=== PATIENT | male | born 2000 | race Caucasian/White ===

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

== ENCOUNTER 2019-09-11 08:45 | Emergency (ER) | payer MEDICAID ==
[2019-09-11] MEDS ORDERED: IPRATROPIUM/ALBUTEROL 3 ML NEB INH STA (09:39)
[2019-09-11] MEDS ORDERED: CHERRY SYRUP 10 ML UDC PO ONE (09:39)
[2019-09-11] MEDS ORDERED: DEXAMETHASONE 10 MG/ML VIAL PO STA (09:39)
--- NOTE | 2019-09-11 09:46 | ED Physician Documentation ---
PD HPI URI - Stated complaint Stated Complaint: SOA/DIZZINESS - Chief complaint Chief Complaint: Resp - History obtained from History obtained from: Patient - History of Present Illness Timing - onset: How many months ago (1) Timing duration: Months (1) Timing details: Gradual onset, Still present Associated symptoms: Fever, Chills, Sweats, Ear pain, Nasal congestion, Rhinorrhea, Sinus pain, Sore throat, Productive cough Improves by: Rest, Medication Worsened by: Activity Similar symptoms before: Diagnosis (asthma) Recently seen: Not recently seen - Additional information Additional information: 18-year-old male with a history of mild intermittent asthma has developed a cough and congestion over the past month. He had some ear pain that started in the right side about 1 month ago. He has had cough and congestion started about a week after that and over the past 3 weeks has had increasing shortness of breath. He does not have a rescue inhaler right now and he is decided to come to the emergency department when he is having a difficult time breathing. Review of Systems Constitutional: reports: Fever, Chills, Myalgias, Fatigue, Sweats Eyes: denies: Decreased vision Ears: reports: Ear pain Nose: reports: Rhinorrhea / runny nose, Congestion Cardiac: reports: Chest pain / pressure. denies: Palpitations, Pedal edema, Calf pain Respiratory: reports: Dyspnea, Cough, Wheezing GI: denies: Abdominal Pain, Nausea, Vomiting : denies: Dysuria PD PAST MEDICAL HISTORY - Past Medical History Cardiovascular: None Respiratory: None, Asthma Neuro: None Endocrine/Autoimmune: None GI: None : None HEENT: None Psych: None Musculoskeletal: None Derm: None - Past Surgical History Past Surgical History: Yes HEENT: Tonsil/Adenoidectomy - Present Medications Home Medications: Ambulatory Orders Medication Instructions Recorded Confirmed Albuterol Sulf [Ventolin Hfa 1 - 2 puffs INH Q4HR PRN #1 inhaler 09/11/19 Inhaler] Azithromycin [Zithromax] 250 mg PO DAILY #6 tablet 09/11/19 Benzonatate [Tessalon Perle] 100 - 200 mg PO TID PRN #30 capsule 09/11/19 - Allergies Allergies/Adverse Reactions: Allergies Allergy/AdvReac Type Severity Reaction Status Date / Time morphine Allergy dyspnea Verified 09/11/19 08:57 - Social History Does the pt smoke?: No Smoking Status: Never smoker Does the pt drink ETOH?: No Does the pt have substance abuse?: No - Immunizations Immunizations are current?: Yes Immunizations: TDAP current <10years - POLST Patient has POLST: No POLST Status: Full Code PD ED PE NORMAL - Vitals Vital signs reviewed: Yes (tachy and hypertensive) - General General: Alert and oriented X 3, No acute distress, Well developed/nourished - HEENT HEENT: Atraumatic, PERRL, EOMI, Pharynx benign, Dentition benign, Other (The right TM is inflamed along the umbo and is dull yellow consistent with a long standing infection. The left is clear) - Neck Neck: Supple, no meningeal sign, No bony TTP - Cardiac Cardiac: No murmur, Other (tachy ) - Respiratory Respiratory: Other (tachypneic at rest with diminished breath sounds and scattered rhonchi. ) - Abdomen Abdomen: Soft, Non tender - Back Back: No CVA TTP, No spinal TTP - Derm Derm: Normal color, Warm and dry, No rash - Extremities Extremities: No deformity, No edema - Neuro Neuro: Alert and oriented X 3, configuration specialist 2-12 intact, No motor deficit, No sensory deficit, Normal speech Eye Opening: Spontaneous Motor: Obeys Commands Verbal: Oriented GCS Score: 15 - Psych Psych: Normal mood, Normal affect Results - Vitals Vitals: Vital Signs - 24 hr 09/11/19 09/11/19 09/11/19 08:55 09:55 11:14 Temperature 37.5 C Heart Rate 110 H 84 100 Respiratory 22 20 18 Rate Blood Pressure 158/89 H 117/88 H O2 Saturation 100 100 Oxygen O2 Source Room air - Rads (name of study) chest 2 view Radiology: Prelim report reviewed (Impression: 1. Lingular and left lower lobe pneumonia. ), EMP read indepedently, See rad report PD MEDICAL DECISION MAKING - ED course Complexity details: reviewed old records, reviewed results, re-evaluated patient, considered differential, d/w patient ED course: 18-year-old male with a history of asthma has had a cough and congestion and w orsening shortness of breath. He is found to have pneumonia on chest x-ray and he has some improvement with a DuoNeb treatment he is administered some dexamethasone and some Rocephin IM and we will place him on a course of azithromycin as well as an inhaler.89-year-old male with a history of asthma has had a cough and congestion and worsening shortness of breath. He is found to have pneumonia on chest x-ray and he has some improvement with a DuoNeb treatment he is administered some dexamethasone and some Rocephin IM and we will place him on a course of azithromycin as well as an inhaler.89-year-old male with a history of asthma has had a cough and congestion and worsening shortness of breath. He is found to have pneumonia on chest x-ray and he has some improvement with a DuoNeb treatment he is administered some dexamethasone and some Rocephin IM and we will place him on a course of azithromycin as well as an inhaler. Departure - Departure Disposition: 01 Home, Self Care Clinical Impression: Pneumonia Qualifiers: Pneumonia type: due to unspecified organism Laterality: left Lung location: lower lobe of lung Qualified Code(s): J18.9 - Pneumonia, unspecified organism Otitis media Qualifiers: Otitis media type: suppurative Chronicity: acute Laterality: right Recurrence: non-recurrent Spontaneous tympanic membrane rupture: without spontaneous rupture Qualified Code(s): H66.001 - Acute suppurative otitis media without spontaneous rupture of ear drum, right ear Condition: Stable Instructions: ED Reactive Airway Disease, ED Otitis Media Acute Adult, ED Pneum onia Adult Follow-Up: Jose G Still MD [Primary Care Provider] - Prescriptions: Albuterol Sulf [Ventolin Hfa Inhaler] 1 - 2 puffs INH Q4HR PRN #1 inhaler PRN Reason: Shortness Of Air/Wheezing Azithromycin [Zithromax] 250 mg PO DAILY #6 tablet Benzonatate [Tessalon Perle] 100 - 200 mg PO TID PRN #30 capsule PRN Reason: Cough Forms: Activity restrictions Discharge Date/Time: 09/11/19 11:15
--- NOTE | 2019-09-11 10:19 | XRAY Report ---
Reason: cough fever rhonchi Procedure Date: 09/11/2019 Accession Number: [id number] / [id number] Procedure: XR - Chest 2 View X-Ray CPT Code: 20577 Final Report FULL RESULT: EXAM: CHEST RADIOGRAPHY EXAM DATE: 09/11/2019 09:55 AM. CLINICAL HISTORY: Cough fever rhonchi. COMPARISON: CHEST 2 VIEW 10/29/2017 8:46 PM CHEST 2 VIEW 10/28/2017 10:19 PM. TECHNIQUE: 2 views. FINDINGS: Lungs/Pleura: Lingular and left lower lobe airspace consolidation. Remainder of the lungs are clear. No pneumothorax. No pleural effusions. Mediastinum: Heart and mediastinal contours are unremarkable. Other: None. IMPRESSION: 1. Lingular and left lower lobe pneumonia. RADIA
[2019-09-11] MEDS ORDERED: LIDOCAINE 1% 2 ML VIAL MC ONE (10:25)
[2019-09-11] MEDS ORDERED: cefTRIAXone 1 GM VIAL IM STA (10:25)
[2019-09-11 11:15] VITALS: BP 117/88
== END 2019-09-11 11:15 | disposition home or self-care (01) ==
LOC: ED 08:45
DX: J18.9 Pneumonia, unspecified organism (principal); H66.001 Acute suppurative otitis media without spontaneous rupture of ear drum, right ear; J45.20 Mild intermittent asthma, uncomplicated
CPT/HCPCS: 71046; 94640; 94664; 96372; 99283; 99284; A9270

== ENCOUNTER 2019-09-29 12:55 | Outpatient (CLI) | payer MEDICAID ==
--- NOTE | 2019-09-29 17:00 | XRAY Report ---
Reason: UNSPECIFIED BACTERIAL PNEUMONIA Procedure Date: 09/29/2019 Accession Number: [id number] / [id number] Procedure: XR - Chest 2 View X-Ray CPT Code: 07397 Final Report FULL RESULT: EXAM: CHEST RADIOGRAPHY EXAM DATE: 09/29/2019 01:06 PM. CLINICAL HISTORY: UNSPECIFIED BACTERIAL PNEUMONIA. COMPARISON: CHEST 2 VIEW 09/11/2019 9:48 AM. TECHNIQUE: 2 views. FINDINGS: Lungs/Pleura: Improvement in lingular pneumonia with mild residual remaining. Right lung is clear. No large effusion or pneumothorax. Mediastinum: Heart and mediastinal contours are unremarkable. Other: None. IMPRESSION: Improvement in lingular pneumonia with mild residual remaining. RADIA
== END 2019-09-29 12:56 | disposition home or self-care (01) ==
LOC: DI 12:55
PROVIDERS: ATTEND Pediatrics
DX: J15.9 Unspecified bacterial pneumonia (principal)
CPT/HCPCS: 71046

== ENCOUNTER 2019-12-20 19:39 | Emergency (ER) | payer MEDICAID ==
--- NOTE | 2019-12-20 19:55 | ED Physician Documentation ---
History of Present Illness - Stated complaint Stated Complaint: SORE THROAT - Chief complaint Chief Complaint: Heent - History obtained from History obtained from: Patient (Went camping and he was out in the cold for a while. He came back, this was yesterday and has had a sore throat, sinus congestion ear pain. No fevers. He also complains that, potentially due to anxiety, he has had some palpitations and skipped heartbeats for the last 2 weeks. He is under a lot of stress.) Review of Systems Constitutional: denies: Fever, Chills Ears: reports: Ear pain Nose: reports: Rhinorrhea / runny nose, Congestion, Sinus pressure / pain Throat: reports: Sore throat Cardiac: reports: Palpitations. denies: Chest pain / pressure Respiratory: denies: Dyspnea, Cough PD PAST MEDICAL HISTORY - Past Medical History Cardiovascular: None Respiratory: None, Asthma Neuro: None Endocrine/Autoimmune: None GI: None : None HEENT: None Psych: None Musculoskeletal: None Derm: None - Past Surgical History Past Surgical History: Yes HEENT: Tonsil/Adenoidectomy - Present Medications Home Medications: Ambulatory Orders Medication Instructions Recorded Confirmed No Known Home Medications 12/20/19 12/20/19 - Allergies Allergies/Adverse Reactions: Allergies Allergy/AdvReac Type Severity Reaction Status Date / Time No Known Drug Allergies Allergy Verified 12/20/19 19:56 - Social History Does the pt smoke?: No Smoking Status: Never smoker Does the pt drink ETOH?: No Does the pt have substance abuse?: No - Immunizations Immunizations are current?: Yes Immunizations: TDAP current <10years - POLST Patient has POLST: No POLST Status: Full Code PD ED PE NORMAL - Vitals Vital signs reviewed: Yes - General General: Alert and oriented X 3, No acute distress - HEENT HEENT: PERRL, EOMI, Other (TMs are normal, oropharynx is definitely red but without tonsillar swelling or exudates. No adenopathy.) - Neck Neck: Supple, no meningeal sign, No bony TTP - Cardiac Cardiac: RRR, No murmur - Respiratory Respiratory: No respiratory distress, Clear bilaterally - Abdomen Abdomen: Non tender - Neuro Neuro: Alert and oriented X 3, Normal speech - Psych Psych: Normal mood, Normal affect Results - Vitals Vitals: Vital Signs - 24 hr 12/20/19 19:46 Temperature 36.4 C L Heart Rate 92 Respiratory 16 Rate Blood Pressure 150/85 H O2 Saturation 98 Oxygen O2 Source Room air - EKG (time done) 1957 Rate: Rate (enter#) (78) Rhythm: NSR [place]: Normal Intervals: Normal MT QRS: Normal Ischemia: ST elevation c/w repol. No: Normal ST segments, ST depression Computer interpretation: Agree with computer - Labs Labs: Laboratory Tests 12/20/19 20:00 Group A Strep Rapid Negative Departure - Departure Disposition: Home, Self Care Clinical Impression: Viral pharyngitis, Palpitations Condition: Good Record reviewed to determine appropriate education?: Yes Instructions: ED Pharyngitis Viral Report Pending Comments: No evidence of a heart issue on EKG or monitoring here. If it continues talk with your doctor about Holter monitoring. Your strep test is negative, we will perform a throat culture, if it is positive we will call you in a couple of days. Otherwise take Tylenol or ibuprofen as needed for the pain and inflammation. Gargle salt water occasionally. Follow-up with your doctor, next available appointment. Also consider counseling for your anxiety.
[2019-12-20 20:30] LABS: RAPID STREP SCREEN Negative (Negative)
[2019-12-20 20:50] VITALS: BP 148/95
== END 2019-12-20 20:50 | disposition home or self-care (01) ==
LOC: ED 19:39
DX: J02.8 Acute pharyngitis due to other specified organisms (principal); R00.2 Palpitations
CPT/HCPCS: 87070; 87430; 93005; 99283; 99284

== ENCOUNTER 2020-08-01 15:39 | Emergency (ER) | payer MEDICAID ==
--- NOTE | 2020-08-01 16:22 | ED Physician Documentation ---
PD HPI ABD PAIN - Stated complaint Stated Complaint: ABD PX,MALE - Chief complaint Chief Complaint: General - History obtained from History obtained from: Patient - History of Present Illness Timing - onset: How many weeks ago (2) Timing - duration: Days (2) Timing - details: Abrupt onset, Still present, Waxing and waning Quality: Sharp, Pain Location: LLQ Improved by: Laying still Worsened by: Position, Palpation, Other (valsalva) Associated symptoms: No: Fever, Nausea, Vomiting, Hematemesis, Diarrhea, Constipation Similar symptoms before: Has not had sx before Recently seen: Not recently seen - Additional information Additional information: Previously well 19-year-old male has developed pain in his left groin he states that this is been going on for about 2 weeks and anytime he uses something where he is lifting something heavy he has pain there. About 2 days ago his pain became worse and today while he was throwing firewood out of propane trucks way, he decided he should come to be seen as it hurts a lot. He has noted a small lump. He has not had nausea vomiting or persistent abdominal pain. He did get abdominal pain with this episode and he did get diaphoretic. Review of Systems Constitutional: denies: Fever, Chills Eyes: denies: Decreased vision Ears: denies: Ear pain Throat: denies: Sore throat Respiratory: denies: Cough GI: reports: Abdominal Pain, Nausea. denies: Vomiting : denies: Dysuria, Frequency Skin: denies: Rash Musculoskeletal: denies: Neck pain, Back pain, Extremity pain Neurologic: denies: Generalized weakness, Focal weakness, Numbness PD PAST MEDICAL HISTORY - Past Medical History Cardiovascular: None Respiratory: None, Asthma Neuro: None Endocrine/Autoimmune: None GI: None : None HEENT: None Psych: None Musculoskeletal: None Derm: None - Past Surgical History Past Surgical History: Yes HEENT: Tonsil/Adenoidectomy - Present Medications Home Medications: Ambulatory Orders Medication Instructions Recorded Confirmed No Known Home Medications 12/20/19 08/01/20 - Allergies Allergies/Adverse Reactions: Allergies Allergy/AdvReac Type Severity Reaction Status Date / Time No Known Drug Allergies Allergy Verified 08/01/20 16:03 - Social History Does the pt smoke?: No Smoking Status: Never smoker Does the pt drink ETOH?: No Does the pt have substance abuse?: No - Immunizations Immunizations are current?: Yes Immunizations: TDAP current <10years - POLST Patient has POLST: No POLST Status: Full Code PD ED PE NORMAL - Vitals Vital signs reviewed: Yes (normal ) - General General: Alert and oriented X 3, No acute distress, Well developed/nourished - HEENT HEENT: Atraumatic, PERRL, EOMI - Respiratory Respiratory: No respiratory distress - Male Male : Other (There is no tenderness or mass to the left testicle or epidydimus. There is tenderness to the inguinal canal and there is buldging with valsalva with tenderness but without persistence of protrusion. ) - Derm Derm: Normal color, No rash - Extremities Extremities: No deformity, No edema - Neuro Neuro: Alert and oriented X 3, beck operator 2-12 intact, No motor deficit, No sensory deficit, Normal speech Eye Opening: Spontaneous Motor: Obeys Commands Verbal: Oriented GCS Score: 15 - Psych Psych: Normal mood, Normal affect Results - Vitals Vitals: Vital Signs - 24 hr 08/01/20 15:54 Temperature 36.1 C L Heart Rate 62 Respiratory 18 Rate Blood Pressure 129/64 O2 Saturation 100 Oxygen O2 Source Room air PD MEDICAL DECISION MAKING - ED course Complexity details: considered differential, d/w patient ED course: 20-year-old male with symptomatic inguinal hernia without incarceration is given instructions for reduced activity and a follow-up with the surgeon. Departure - Departure Disposition: 01 Home, Self Care Clinical Impression: Inguinal hernia Qualifiers: Obstruction and gangrene presence: without obstruction or gangrene Laterality: unilateral Recurrence: non-recurrent Qualified Code(s): K40.90 - Unilateral inguinal hernia, without obstruction or gangrene, not specified as recurrent Condition: Stable Instructions: ED Hernia Inguinal Follow-Up: Jose G Still MD [Primary Care Provider] - Gonzalo Miller MD [Provider Admit Priv/Credential] -
[2020-08-01 16:41] VITALS: BP 131/72
== END 2020-08-01 16:42 | disposition home or self-care (01) ==
LOC: ED 15:39
DX: K40.90 Unilateral inguinal hernia, without obstruction or gangrene, not specified as recurrent (principal)
CPT/HCPCS: 99282; 99284

== ENCOUNTER 2020-09-09 18:49 | Emergency (ER) | payer MEDICAID ==
[2020-09-09] MEDS ORDERED: BUFFERED LIDOCAINE 10 ML SYRINGE SUBQ STA (18:57)
--- NOTE | 2020-09-09 18:58 | ED Physician Documentation ---
PD HPI WOUND RECHECK - Stated complaint Stated Complaint: RT FINGER VS SAW - Chief complaint Chief Complaint: Wound - Histroy obtained from History obtained from: Patient (This ambidextrous young man who is up-to-date on tetanus cut his right second finger dorsally on a band saw at home just prior to arrival.) Review of Systems Constitutional: reports: Reviewed and negative Eyes: reports: Reviewed and negative Ears: reports: Reviewed and negative PD PAST MEDICAL HISTORY - Past Medical History Cardiovascular: None Respiratory: None, Asthma Neuro: None Endocrine/Autoimmune: None GI: None : None HEENT: None Psych: None Musculoskeletal: None Derm: None - Past Surgical History Past Surgical History: Yes HEENT: Tonsil/Adenoidectomy - Present Medications Home Medications: Ambulatory Orders Medication Instructions Recorded Confirmed No Known Home Medications 12/20/19 08/01/20 - Allergies Allergies/Adverse Reactions: Allergies Allergy/AdvReac Type Severity Reaction Status Date / Time No Known Drug Allergies Allergy Verified 08/01/20 16:03 - Social History Does the pt smoke?: No Smoking Status: Never smoker Does the pt drink ETOH?: No Does the pt have substance abuse?: No - Immunizations Immunizations are current?: Yes Immunizations: TDAP current <10years - POLST Patient has POLST: No POLST Status: Full Code PD ED PE NORMAL - Vitals Vital signs reviewed: Yes - General General: Alert and oriented X 3, No acute distress - Extremities Extremities: Other (He has a 1.5 cm L-shaped laceration over the dorsal part of the radial side of the second PIP without distal neurovascular compromise.) - Neuro Neuro: Alert and oriented X 3, Normal speech Results - Vitals Vitals: Vital Signs - 24 hr 09/09/20 18:55 Temperature 36.5 C Heart Rate 77 Respiratory 18 Rate Blood Pressure 137/89 H O2 Saturation 98 Oxygen O2 Source Room air Procedures - Laceration (location) R 2nd finger Length in cm: 1.5 Wound type: Linear, Into subcut fat Neurovascular status: Sensory intact, Motor intact Tendon involvement: Tendon intact Anesthesia: Lidocaine 1%, With bicarb Wound preparation: Betadine, Irrigated copiously NS Skin layer closure: Nylon, Interrupted, Size #-0 - enter number (4-0), Sutures - enter # (3) Other: Patient tolerated well, No complications, Neurovascular intact, Dressing applied, Tetanus UTD Departure - Departure Disposition: 01 Home, Self Care Clinical Impression: Laceration of right index finger Qualifiers: Encounter type: initial encounter Damage to nail status: without damage Foreign body presence: without foreign body Qualified Code(s): S61.210A - Laceration without foreign body of right index finger without damage to nail, initial encounter Condition: Good Record reviewed to determine appropriate education?: Yes Instructions: ED Laceration Hand Comments: Come back for any signs of infection which would include: Redness, swelling, drainage, increased pain, or fevers. You can wash it soap and water. Keep it covered and moist with bacitracin ointment which is available over the counter; avoid neosporin. Follow-up with your physician in 10-14 days for suture removal.
[2020-09-09 19:21] VITALS: BP 130/81
== END 2020-09-09 19:20 | disposition home or self-care (01) ==
LOC: ED 18:49
DX: S61.210A Laceration without foreign body of right index finger without damage to nail, initial encounter (principal); W31.2XXA Contact with powered woodworking and forming machines, initial encounter; Y92.009 Unspecified place in unspecified non-institutional (private) residence as the place of occurrence of the external cause
CPT/HCPCS: 12001; 99281; 99282

== ENCOUNTER 2021-04-16 16:05 | Emergency (ER) | payer MEDICAID ==
--- NOTE | 2021-04-16 17:32 | XRAY Report ---
PROCEDURE: Shoulder 3 View LT INDICATIONS: fall/pain TECHNIQUE: 3 views of the shoulder were acquired. COMPARISON: CXR 09/29/2019. FINDINGS: Bones: No definite fractures or dislocations. Ossicle inferior to the glenoid. This is only seen on one projection. No suspicious bony lesions. Visualized ribs appear intact. Soft tissues: No suspicious soft tissue calcifications. IMPRESSION: No definite fracture. No dislocation. Corticated ossicle inferior to the glenoid. This could represent accessory ossicle. Reviewed by: Celio Clark MD on 04/16/2021 4:31 PM RISA Approved by: Celio Clark MD on 04/16/2021 4:31 PM RISA Station ID: [id number]
--- NOTE | 2021-04-16 17:36 | XRAY Report ---
PROCEDURE: Wrist 3 View RT INDICATIONS: fall/pain TECHNIQUE: 3 views of the wrist were acquired. COMPARISON: Right forearm radiographs 10/18/2017. FINDINGS: Bones: No fractures or dislocations. No suspicious bony lesions. Soft tissues: No suspicious soft tissue calcifications. IMPRESSION: No acute osseous abnormality. Reviewed by: Celio Clark MD on 04/16/2021 4:34 PM [facility] Approved by: Celio Clark MD on 04/16/2021 4:34 PM AKDT Station ID: [id number]
--- NOTE | 2021-04-16 17:44 | ED Physician Documentation ---
History of Present Illness - Stated complaint Stated Complaint: GLF/LT SHOULDER/RT WRIST/TAILBONE PX - Chief complaint Chief Complaint: Trauma Ext - History obtained from History obtained from: Patient - Additonal information Additional information: Patient comes emergency department chief complaint of pain in left shoulder right wrist and "tailbone" after a ground-level fall. Patient states the fall happened 2 days ago while he was hiking and that he slipped, fell straight down onto his sacral area, and then fell onto his left lateral shoulder. He also caught himself on his outstretched right wrist. He states the pain has been getting worse over the last couple of days and is worried that he may have broken something. No head injury. Patient also complains of some sinus congestion, which is unrelated to the fall, and feels that his ears are clogged. No other complaints at this time. Review of Systems Ten Systems: 10 systems reviewed and negative Constitutional: reports: Reviewed and negative Eyes: reports: Reviewed and negative Ears: reports: Other (Ear pressure) Nose: reports: Congestion, Sinus pressure / pain (Pressure) Throat: reports: Reviewed and negative Cardiac: reports: Reviewed and negative Respiratory: reports: Reviewed and negative GI: reports: Reviewed and negative : reports: Reviewed and negative Skin: reports: Reviewed and negative Musculoskeletal: reports: Back pain, Joint pain Neurologic: reports: Reviewed and negative Psychiatric: reports: Reviewed and negative Endocrine: reports: Reviewed and negative Immunocompromised: reports: Reviewed and negative PD PAST MEDICAL HISTORY - Past Medical History Cardiovascular: None Respiratory: None, Asthma Neuro: None Endocrine/Autoimmune: None GI: None : None HEENT: None Psych: None Musculoskeletal: None Derm: None - Past Surgical History Past Surgical History: Yes HEENT: Tonsil/Adenoidectomy - Present Medications Home Medications: Ambulatory Orders Medication Instructions Recorded Confirmed No Known Home Medications 12/20/19 08/01/20 - Allergies Allergies/Adverse Reactions: Allergies Allergy/AdvReac Type Severity Reaction Status Date / Time No Known Drug Allergies Allergy Verified 04/16/21 16:09 - Social History Does the pt smoke?: No Smoking Status: Never smoker Does the pt drink ETOH?: No Does the pt have substance abuse?: No - Immunizations Immunizations are current?: Yes Immunizations: TDAP current <10years - POLST Patient has POLST: No POLST Status: Full Code PD ED PE NORMAL - Vitals Vital signs reviewed: Yes - General General: Alert and oriented X 3, No acute distress, Well developed/nourished - HEENT HEENT: Atraumatic, PERRL, EOMI, Moist mucous membranes, Other (Right ear normal; left tympanic membrane dull but not erythematous or bulging.) - Neck Neck: Supple, no meningeal sign - Cardiac Cardiac: Strong equal pulses - Respiratory Respiratory: No respiratory distress - Back Back: Other (Tenderness over her sacrum and coccyx.) - Derm Derm: Normal color, Warm and dry, No rash - Extremities Extremities: No edema, Other (Mild left AC prominence with tenderness. No left clavicular tenderness. No deformity. Moderately limited range of motion secondary to pain. Right wrist with point tenderness over dorsum, involving the area of carpal bones. No deformity. No edema.) - Neuro Neuro: Alert and oriented X 3, straight knife cutter machine 2-12 intact, No motor deficit, No sensory deficit, Normal speech - Psych Psych: Normal mood, Normal affect Results - Vitals Vitals: Vital Signs - 24 hr 04/16/21 04/16/21 16:09 18:20 Temperature 36.5 C 36.9 C Heart Rate 83 62 Respiratory 16 16 Rate Blood Pressure 148/78 H 119/56 L O2 Saturation 100 98 Oxygen O2 Source Room air - Rads (name of study) R wrist XR Radiology: Final report received, EMP read indepedently, See rad report (neg) L shoulder xr Radiology: Final report received, EMP read indepedently, See rad report (neg) sacral/coccygeal xr Radiology: Final report received, EMP read indepedently, See rad report (neg for fx) PD MEDICAL DECISION MAKING - ED course Complexity details: reviewed results, re-evaluated patient, considered differential, d/w patient ED course: Patient is worked up with x-rays of the left shoulder, right wrist, and sacrum, all of which were unremarkable. We have discussed symptomatic management at home, as well as the usual indications for return. Departure - Departure Disposition: 01 Home, Self Care Clinical Impression: Sinus congestion Left shoulder strain Qualifiers: Encounter type: initial encounter Qualified Code(s): S46.912A - Strain of unspecified muscle, fascia and tendon at shoulder and upper arm level, left arm, initial encounter Wrist strain Qualifiers: Encounter type: initial encounter Laterality: right Qualified Code(s): S66.911A - Strain of unspecified muscle, fascia and tendon at wrist and hand level, right hand, initial encounter Sacral contusion Qualifiers: Encounter type: initial encounter Qualified Code(s): S30.0XXA - Contusion of lower back and pelvis, initial encounter Condition: Stable Instructions: Wrist Sprain, ED Sprain AC Joint, ED Contusion Sacrum Coccyx, ED Sinusitis No Abx Follow-Up: Nabil Perez MD [Provider Admit Priv/Credential] - Comments: Your x-rays do not show any evidence of broken bones. Most likely you have bruised and strained the areas that are hurting. These kinds of injuries will generally get better on their own in a matter of days to weeks. You may use ibuprofen and Tylenol, as well as ice, if needed. There is no evidence of a sinus or ear infection at this time. You may have some sinus allergies which caused your chronic congestion, and you may use [id number] Claritin or Benadryl to help with this. Please follow-up in primary care for further concerns. Discharge Date/Time: 04/16/21 18:20
--- NOTE | 2021-04-16 18:16 | XRAY Report ---
PROCEDURE: Sacrum/Coccyx INDICATIONS: pain/fell TECHNIQUE: 3 views of the sacrum and coccyx acquired. COMPARISON: CT abdomen and pelvis 01/08/2012 (access through [facility]). FINDINGS: Bones: No dislocation. The coccyx is flexed anteriorly this appears increased compared to 2012. No sheriff spicious bony lesions. Soft tissues: Visualized bowel gas pattern is normal. No suspicious soft tissue densities. IMPRESSION: Anterior flexion of the coccyx which may be increased compared to 2012. This could represent injury o f the coccyx. Recommend correlation for point tenderness. Follow-up radiographs in 10-14 days may be helpful for fu rther evaluation. MRI could also be considered. If additional remote CTs of the pelvis become availab le comparison would be helpful. Reviewed by: Celio Clark MD on 04/16/2021 5:15 PM RISA Approved by: Celio Clark MD on 04/16/2021 5:15 PM RISA Station ID: [id number]
[2021-04-16 18:20] VITALS: BP 119/56
== END 2021-04-16 18:20 | disposition home or self-care (01) ==
LOC: ED 16:05
DX: S46.912A Strain of unspecified muscle, fascia and tendon at shoulder and upper arm level, left arm, initial encounter (principal); S66.911A Strain of unspecified muscle, fascia and tendon at wrist and hand level, right hand, initial encounter; S30.0XXA Contusion of lower back and pelvis, initial encounter; W01.0XXA Fall on same level from slipping, tripping and stumbling without subsequent striking against object, initial encounter; Y93.01 Activity, walking, marching and hiking
CPT/HCPCS: 99284

== ENCOUNTER 2021-07-20 09:19 | Emergency (ER) | payer MEDICAID ==
--- NOTE | 2021-07-20 10:03 | ED Physician Documentation ---
PD HPI CHEST PAIN - Stated complaint Stated Complaint: HEART PX - Chief complaint Chief Complaint: Cardiac - History obtained from History obtained from: Patient - History of Present Illness Timing - onset: How many weeks ago (has had symptoms intermittently for few weeks, with feeling of dyspnea, flushed feeling and lightheaded. Sometimes feels heart is racing. Lasts from minutes to hours. Also has noted about 40 lb weight loss over the past 3-4 months without change in diet nor activity. FH of Cushings mother/brother.) Timing - onset during: Rest, Light activity Timing - duration: Minutes, Hours Timing - details: Abrupt onset, Intermittant Quality: Pressure, Tightness Location: Substernal Radiation: No: Neck, Back Improved by: No: Rest Worsened by: No: Inspiration, Eating, Movement Associated symptoms: Shortness of air, Palpitations (heart feeling racing when having symptoms.). No: Nausea, Feeling faint / dizzy Similar symptoms before: No diagnosis Recently seen: Not recently seen Review of Systems Constitutional: denies: Fever, Chills, Myalgias Nose: denies: Rhinorrhea / runny nose, Congestion Throat: denies: Sore throat Cardiac: reports: Chest pain / pressure. denies: Pedal edema, Calf pain Respiratory: denies: Cough, Wheezing GI: denies: Abdominal Pain, Nausea, Vomiting, Diarrhea Skin: denies: Rash, Lesions Neurologic: reports: Generalized weakness. denies: Focal weakness, Numbness, Near syncope, Headache, Head injury Psychiatric: reports: Insomnia. denies: Depressed, Anxiety Endocrine: reports: Weight loss PD PAST MEDICAL HISTORY - Past Medical History Cardiovascular: None Respiratory: None, Asthma Neuro: None Endocrine/Autoimmune: None GI: None : None HEENT: None Psych: None Musculoskeletal: None Derm: None - Past Surgical History Past Surgical History: Yes HEENT: Tonsil/Adenoidectomy - Present Medications Home Medications: Ambulatory Orders Medication Instructions Recorded Confirmed Amitriptyline [Elavil] 25 mg PO HS PRN #15 tablet 07/20/21 Fluticasone [Flonase] 2 sprays JEREL DAILY 30 Days #16 gm 07/20/21 - Allergies Allergies/Adverse Reactions: Allergies Allergy/AdvReac Type Severity Reaction Status Date / Time No Known Drug Allergies Allergy Verified 07/20/21 09:35 - Social History Does the pt smoke?: No Smoking Status: Never smoker Does the pt drink ETOH?: No Does the pt have substance abuse?: No - Family History Family history: reports: Other (Cushings disease in mother and brother and their symptoms were similar. ) - Immunizations Immunizations are current?: Yes Immunizations: TDAP current <10years - POLST Patient has POLST: No POLST Status: Full Code PD ED PE NORMAL - Vitals Vital signs reviewed: Yes - General General: Alert and oriented X 3, No acute distress, Well developed/nourished - HEENT HEENT: Pharynx benign - Neck Neck: Supple, no meningeal sign, No adenopathy, Thyroid normal - Cardiac Cardiac: RRR, No murmur - Respiratory Respiratory: Clear bilaterally - Abdomen Abdomen: Normal bowel sounds, Soft, Non tender - Male Male : Deferred - Rectal Rectal: Deferred - Back Back: No CVA TTP - Derm Derm: Normal color, Warm and dry - Extremities Extremities: No tenderness to palpate, Normal ROM s pain, No edema, No calf tenderness / cord - Neuro Neuro: Alert and oriented X 3, No motor deficit, Normal speech Results - Vitals Vitals: Vital Signs - 24 hr 07/20/21 07/20/21 07/20/21 09:30 09:37 09:46 Temperature 36.3 C L 36.7 C 36.6 C Heart Rate 90 90 68 Respiratory 16 16 14 Rate Blood Pressure 138/76 H 138/76 H 140/67 H O2 Saturation 99 99 98 07/20/21 11:34 Temperature 36.5 C Heart Rate 57 L Respiratory 17 Rate Blood Pressure 135/88 H O2 Saturation 100 Oxygen O2 Source Room air - EKG (time done) 09:23 Rate: Rate (enter#) (71) Rhythm: NSR [place]: Normal Intervals: Normal [place] QRS: Normal Ischemia: Normal ST segments, ST elevation c/w repol. No: ST elevation c/w ischemia, ST depression Compare to prior EKG: Unchanged from prior EKG (12/20/19) - Labs Labs: Laboratory Tests 07/20/21 07/20/21 07/20/21 10:26 10:49 10:49 WBC 4.7 L RBC 4.68 L Hgb 14.3 Hct 43.2 MCV 92.3 MCH 30.6 MCHC 33.1 RDW 13.1 Plt Count 202 MPV 10.1 Neut # (Auto) 2.3 Lymph # (Auto) 1.8 [place] # (Auto) 0.3 Eos # (Auto) 0.2 Baso # (Auto) 0.1 Manual Slide Review Not Indicated ESR 1 Sodium Potassium Chloride Carbon Dioxide Anion Gap BUN Creatinine Estimated GFR (MDRD) Glucose Calcium Total Bilirubin AST ALT Alkaline Phosphatase Total Creatine Kinase Total Protein Albumin Globulin Albumin/Globulin Ratio Lipase TSH Cortisol Urine Color YELLOW Urine Clarity CLEAR Urine pH 6.0 Ur Specific [place] 1.020 Urine Protein NEGATIVE Urine Glucose (UA) NEGATIVE Urine Ketones TRACE Urine Occult Blood NEGATIVE Urine Nitrite NEGATIVE Urine Bilirubin NEGATIVE Urine Urobilinogen 0.2 (NORMAL) Ur Leukocyte Esterase NEGATIVE Ur Microscopic Review NOT INDICATED Urine Culture Comments NOT INDICATED 07/20/21 07/20/21 10:49 10:49 WBC RBC Hgb Hct MCV MCH MCHC RDW Plt Count MPV Neut # (Auto) Lymph # (Auto) [place] # (Auto) Eos # (Auto) Baso # (Auto) Manual Slide Review ESR Sodium 137 Potassium 4.5 Chloride 100 L Carbon Dioxide 27 Anion Gap 10.0 BUN 17 Creatinine 0.8 Estimated GFR (MDRD) 122 Glucose 89 Calcium 9.2 Total Bilirubin 0.7 AST 21 ALT 16 Alkaline Phosphatase 58 Total Creatine Kinase 138 Total Protein 7.0 Albumin 4.5 Globulin 2.5 Albumin/Globulin Ratio 1.8 Lipase 24 TSH 1.96 Cortisol 13.6 Urine Color Urine Clarity Urine pH Ur Specific [place] Urine Protein Urine Glucose (UA) Urine Ketones Urine Occult Blood Urine Nitrite Urine Bilirubin Urine Urobilinogen Ur Leukocyte Esterase Ur Microscopic Review Urine Culture Comments PD MEDICAL DECISION MAKING - ED course Complexity details: reviewed results, considered differential (episodes of dyspnea, fast heart rate, lightheaded. Consider rhythm related, endocrine. Could be poor sleep and anxiety. Can test for Cushings since FH of it. spot Cortisol done, but [facility] does not do the saliva test. So will need to do 24hr urine test for accuracy. Consider autoimmune. ), d/w patient Departure - Departure Disposition: 01 Home, Self Care Clinical Impression: Weight loss, Palpitations, Poor sleep Condition: Stable Record reviewed to determine appropriate education?: Yes Follow-Up: [facility] [Provider Group] Primary [facility] [Provider Group] Prescriptions: Amitriptyline [Elavil] 25 mg PO HS PRN #15 tablet PRN Reason: Insomnia Fluticasone [Flonase] 2 sprays JEREL DAILY 30 Days #16 gm Comments: Your initial blood tests here are good without any signs of diabetes, kidney problems, anemia, electrolyte problems. Your thyroid and cortisol tests are still pending. More accurate would also be a 24-hour urine collection for cortisol. Collect urine for 24 hours and bring it into with the urgent cares. They can fo llow-up on your lab tests that are still pending from today. The urine cortisol test will be more accurate for adrenal problems that run in your family. For your nose, use the fluticasone nasal spray 1 squirt in both nostrils daily for the next month and see if that helps your sinus pressure. For sleep at night you can try amitriptyline and see if that helps with sleep without leaving you foggy during the day. Follow-up with the walk-in clinics in the short-term but ultimately primary care at one of the primary care clinics. Call for an appointment. Discharge Date/Time: 07/20/21 12:30
[2021-07-20 10:49] LABS: BILIRUBIN,URINE NEGATIVE (NEGATIVE); CLARITY,URINE CLEAR (CLEAR); GLUCOSE, URINE (UA) NEGATIVE (NEGATIVE); KETONES,URINE (UA) TRACE mg/dL (NEGATIVE); LEUKOCYTE ESTERASE, URINE NEGATIVE (NEGATIVE); NITRITE,URINE NEGATIVE (NEGATIVE); OCCULT BLOOD,URINE NEGATIVE (NEGATIVE); PROTEIN,URINE NEGATIVE (NEGATIVE); UROBILINOGEN,URINE 0.2 (NORMAL) E.U./dL (NORMAL)
[2021-07-20 11:22] LABS: POTASSIUM 4.5 mmol/L (3.5-5.0)
[2021-07-20 11:23] LABS: ALBUMIN 4.5 g/dL (3.2-5.5); ALBUMIN/GLOBULIN RATIO 1.8 (1.0-2.2); BILIRUBIN,TOTAL 0.7 mg/dL (0.2-1.0); CALCIUM 9.2 mg/dL (8.5-10.3); CREATININE 0.8 mg/dL (0.6-1.2)
[2021-07-20 11:36] LABS: BASOPHILS # (AUTO) 0.1 10^3/uL (0.0-0.1); BASOPHILS % (AUTO) 1.1 %; EOSINOPHILS # (AUTO) 0.2 10^3/uL (0.0-0.7); EOSINOPHILS % (AUTO) 3.8 %; HCT - HEMATOCRIT 43.2 % (42.0-52.0); HGB - HEMOGLOBIN 14.3 g/dL (14.0-18.0); LYMPHOCYTES # (AUTO) 1.8 10^3/uL (1.5-3.5); LYMPHOCYTES % (AUTO) 38.6 %; MEAN CORPUSCULAR HEMOGLOBIN 30.6 pg (27.0-31.0); MEAN CORPUSCULAR HGB CONC 33.1 g/dL (32.0-36.0); MEAN CORPUSCULAR VOLUME 92.3 fL (80.0-94.0); MEAN PLATELET VOLUME 10.1 fL (7.4-11.4); MONOCYTES # (AUTO) 0.3 10^3/uL (0.0-1.0); MONOCYTES % (AUTO) 7.2 %; NEUTROPHILS # (AUTO) 2.3 10^3/uL (1.5-6.6); NEUTROPHILS % (AUTO) 49.1 %; PLT - PLATELET COUNT 202 10^3/uL (130-450); RED BLOOD COUNT 4.68 10^6/uL (4.70-6.10); RED CELL DISTRIBUTION WIDTH 13.1 % (12.0-15.0); WHITE BLOOD COUNT 4.7 x10^3/uL (4.8-10.8)
[2021-07-20 11:37] LABS: SLIDE REVIEW? Not Indicated
[2021-07-20 11:48] VITALS: BP 135/88
[2021-07-20 13:06] LABS: CORTISOL 13.6 ug/dL; THYROID STIMULATING HORMONE 1.96 uIU/mL (0.34-5.60)
== END 2021-07-20 12:30 | disposition home or self-care (01) ==
LOC: ED 09:19
DX: R00.2 Palpitations (principal); R07.89 Other chest pain; R06.02 Shortness of breath; R63.4 Abnormal weight loss; Z72.820 Sleep deprivation
CPT/HCPCS: 36415; 80053; 81001; 81003; 82530; 82533; 82550; 83690; 84443; 85025; 85651; 87086; 93005; 99284

== ENCOUNTER 2022-05-03 14:33 | Emergency (ER) | payer MEDICAID ==
--- NOTE | 2022-05-03 16:11 | ED Physician Documentation ---
History of Present Illness - Stated complaint Stated Complaint: CHEST PX/FATIGUE - Chief complaint Chief Complaint: General - Additonal information Additional information: 21-year-old male presents emergency department for evaluation of chest pain. He reports this has been an intermittent problem for many years. He states sometimes he finds he has it at rest, when laying down or even with movement. He reports a V-shaped pattern that radiates from his epigastric area up over both shoulders. No syncope. He has been evaluated for similar in the past. Patient works as an auto garage attendant and reports that due to his work schedule he is unable to see a primary care doctor or go to appropriate follow-up appointments. No tobacco use. He takes no prescribed medications and he has not attempted any analgesia at home. He has no syncope or fevers. No cough. No hemoptysis. No history of DVT or cancer. He does report that he is lost about 20 pounds unintentionally over the last 3 to 4 months. Review of Systems Constitutional: reports: Fatigue, Weight Loss. denies: Fever, Chills Eyes: reports: Reviewed and negative Ears: reports: Reviewed and negative Cardiac: reports: Chest pain / pressure Respiratory: denies: Dyspnea, Cough, Hemoptysis GI: reports: Reviewed and negative : reports: Reviewed and negative Skin: reports: Reviewed and negative PD PAST MEDICAL HISTORY - Past Medical History Cardiovascular: None Respiratory: None, Asthma Neuro: None Endocrine/Autoimmune: None GI: None : None HEENT: None Psych: None Musculoskeletal: None Derm: None - Past Surgical History Past Surgical History: Yes HEENT: Tonsil/Adenoidectomy - Present Medications Home Medications: Ambulatory Orders Medication Instructions Recorded Confirmed Amitriptyline [Elavil] 25 mg PO HS PRN #15 tablet 07/20/21 Fluticasone [Flonase] 2 sprays JEREL DAILY 30 Days #16 gm 07/20/21 - Allergies Allergies/Adverse Reactions: Allergies Allergy/AdvReac Type Severity Reaction Status Date / Time No Known Drug Allergies Allergy Verified 07/20/21 09:35 - Social History Does the pt smoke?: No Smoking Status: Never smoker Does the pt drink ETOH?: No Does the pt have substance abuse?: No - Immunizations Immunizations are current?: Yes Immunizations: TDAP current <10years - POLST Patient has POLST: No POLST Status: Full Code PD ED PE NORMAL - General General: Alert and oriented X 3, No acute distress, Well developed/nourished - HEENT HEENT: Atraumatic, Moist mucous membranes - Neck Neck: Supple, no meningeal sign, No adenopathy - Cardiac Cardiac: RRR, No murmur, Strong equal pulses, Other (Unable to reproduce a chest pain with palpation or movement) - Respiratory Respiratory: No respiratory distress, Clear bilaterally - Abdomen Abdomen: Normal bowel sounds, Soft, Non tender - Back Back: No CVA TTP, No spinal TTP - Derm Derm: Normal color, Warm and dry, No rash - Extremities Extremities: No deformity - Neuro Neuro: Alert and oriented X 3, discount clerk 2-12 intact Eye Opening: Spontaneous Motor: Obeys Commands Verbal: Oriented GCS Score: 15 Results - Vitals Vitals: Vital Signs - 24 hr 05/03/22 14:35 Temperature 36.4 C L Heart Rate 84 Respiratory 18 Rate Blood Pressure 148/64 H O2 Saturation 98 Oxygen O2 Source Room air - EKG (time done) 1506 Rate: Rate (enter#) (93) Rhythm: NSR [place]: RAD Intervals: Normal IN. No: Prolonged QT QRS: Normal Ischemia: ST elevation c/w repol Compare to prior EKG: Unchanged from prior EKG Computer interpretation: Agree with computer - Labs Labs: Laboratory Tests 05/03/22 05/03/22 05/03/22 16:08 16:08 16:08 WBC 7.1 RBC 4.83 Hgb 14.5 Hct 43.3 MCV 89.6 MCH 30.0 MCHC 33.5 RDW 13.1 Plt Count 262 MPV 10.4 Neut # (Auto) 4.2 Lymph # (Auto) 2.2 [place] # (Auto) 0.4 Eos # (Auto) 0.2 Baso # (Auto) 0.1 Absolute Nucleated RBC 0.00 Nucleated RBC % 0.0 Sodium 135 Potassium 4.0 Chloride 101 Carbon Dioxide 26 Anion Gap 8.0 BUN 17 Creatinine 1.1 Estimated GFR (MDRD) 84 L Glucose 87 Calcium 9.2 Total Bilirubin 0.5 AST 19 ALT 21 Alkaline Phosphatase 51 Troponin I High Sens < 2.3 L Total Protein 7.2 Albumin 4.4 Globulin 2.8 Albumin/Globulin Ratio 1.6 Lipase 32 TSH 05/03/22 16:08 WBC RBC Hgb Hct MCV MCH MCHC RDW Plt Count MPV Neut # (Auto) Lymph # (Auto) [place] # (Auto) Eos # (Auto) Baso # (Auto) Absolute Nucleated RBC Nucleated RBC % Sodium Potassium Chloride Carbon Dioxide Anion Gap BUN Creatinine Estimated GFR (MDRD) Glucose Calcium Total Bilirubin AST ALT Alkaline Phosphatase Troponin I High Sens Total Protein Albumin Globulin Albumin/Globulin Ratio Lipase TSH 1.32 - Rads (name of study) cxr Radiology: Final report received (No acute cardiopulmonary process) PD MEDICAL DECISION MAKING - ED course Complexity details: reviewed results, re-evaluated patient, considered leonarda avila, d/w patient ED course: 19-year-old male presents emergency department for evaluation of chronic chest pain. States has been ongoing for years. It comes and goes and spells. This episode seems to be lasting a few months. It sometimes worse with movement sometimes present at rest. No syncope. Patient radiates pain from his epigastric area up over both his shoulders. His EKG is nonischemic. Troponin negative. Chest x-ray without acute focal findings. CBC and electrolytes without worrisome abnormalities. The patient was given a dose of ibuprofen here in the ER without relief of pain. Patient reports that he had an uncle that of due to a massive myocardial infarction. Given the strong family history for early onset of coronary artery disease he is advised close follow-up with primary care provider for referral for Echoand stress test Departure - Departure Disposition: 01 Home, Self Care Clinical Impression: Chest pain Qualifiers: Chest pain type: unspecified Qualified Code(s): R07.9 - Chest pain, unspecified Condition: Stable Record reviewed to determine appropriate education?: Yes Comments: Nile you are seen today in the emergency department for chest pain that seems to be an intermittent but recurring problem over the last few years. You also report that your uncle at a very young age due to a heart attack. Your EKG, chest x-ray CBC and electrolytes are all essentially normal. With your family history of early cardiac disease in a male you would benefit from from a referral to a business manager for a stress test and echocardiogram. Please discuss this with your primary care doctor as soon as possible. If you have any fainting episodes, worsening symptoms return to the ER
[2022-05-03] MEDS: IBUPROFEN 600 MG TABLET PO STA (16:15)
[2022-05-03 16:18] LABS: BASOPHILS # (AUTO) 0.1 10^3/uL (0.0-0.1); EOSINOPHILS # (AUTO) 0.2 10^3/uL (0.0-0.7); EOSINOPHILS % (AUTO) 2.8 %; HCT - HEMATOCRIT 43.3 % (42.0-52.0); HGB - HEMOGLOBIN 14.5 g/dL (14.0-18.0); LYMPHOCYTES # (AUTO) 2.2 10^3/uL (1.5-3.5); LYMPHOCYTES % (AUTO) 30.7 %; MEAN CORPUSCULAR HGB CONC 33.5 g/dL (32.0-36.0); MEAN CORPUSCULAR VOLUME 89.6 fL (80.0-94.0); MEAN PLATELET VOLUME 10.4 fL (7.4-11.4); MONOCYTES # (AUTO) 0.4 10^3/uL (0.0-1.0); MONOCYTES % (AUTO) 5.4 %; NEUTROPHILS # (AUTO) 4.2 10^3/uL (1.5-6.6); NEUTROPHILS % (AUTO) 59.7 %; PLT - PLATELET COUNT 262 10^3/uL (130-450); RED BLOOD COUNT 4.83 10^6/uL (4.70-6.10); RED CELL DISTRIBUTION WIDTH 13.1 % (12.0-15.0); WHITE BLOOD COUNT 7.1 x10^3/uL (4.8-10.8)
[2022-05-03 16:30] LABS: ALBUMIN 4.4 g/dL (3.2-5.5); ALBUMIN/GLOBULIN RATIO 1.6 (1.0-2.2); BILIRUBIN,TOTAL 0.5 mg/dL (0.2-1.0); CALCIUM 9.2 mg/dL (8.5-10.3); CREATININE 1.1 mg/dL (0.6-1.2); TOTAL PROTEIN 7.2 g/dL (6.7-8.2)
--- NOTE | 2022-05-03 16:46 | XRAY Report ---
PROCEDURE: Chest 1 View X-Ray INDICATIONS: Chest Pain TECHNIQUE: One view of the chest was acquired. COMPARISON: 09/29/2019 FINDINGS: Surgical changes and devices: None. Lungs and pleura: No pleural effusions or pneumothorax. Lungs are clear. Mediastinum: Mediastinal contours appear normal. Heart size is normal. Bones and chest wall: No suspicious bony lesions. Overlying soft tissues appear unremarkable. IMPRESSION: No acute cardiopulmonary pathology. Reviewed by: Rikki Winchester MD on 05/03/2022 4:44 PM PDT Approved by: Rikki Winchester MD on 05/03/2022 4:44 PM PDT Station ID: [id number]
[2022-05-03 17:46] VITALS: BP 121/74
== END 2022-05-03 17:46 | disposition home or self-care (01) ==
LOC: ED 14:33
DX: R07.9 Chest pain, unspecified (principal); Z82.49 Family history of ischemic heart disease and other diseases of the circulatory system
CPT/HCPCS: 36415; 71045; 80053; 83690; 84443; 84484; 85025; 93005; 99284; A9270

== ENCOUNTER 2022-12-09 20:08 | Emergency (ER) | payer MEDICAID ==
[2022-12-09] MEDS ORDERED: HYDROcod/ACETAM 5/325 MG TABLET PO STA (20:23)
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
[2022-12-09] MEDS ORDERED: HYDROcod/ACET 5/325 Prepack 4 PO STA (20:37)
--- NOTE | 2022-12-09 20:51 | XRAY Report ---
PROCEDURE: Knee 4 View RT INDICATIONS: KNEE INJ TECHNIQUE: 4 views of the right knee were acquired. COMPARISON: None. FINDINGS: Bones: No fractures or dislocations. No suspicious bony lesions. Soft tissues: There is a large knee joint effusion. Prepatellar soft tissue swelling also present. T here is less stranding or fluid in the infrapatellar fat. IMPRESSION: 1. No fracture or dislocation. 2. Large joint effusion. Reviewed by: Keven Guido MD on 12/09/2022 8:50 PM PDT Approved by: Keven Guido MD on 12/09/2022 8:50 PM PDT Station ID: [id number]
[2022-12-09 21:17] VITALS: BP 151/84
== END 2022-12-09 21:18 | disposition home or self-care (01) ==
LOC: ED 20:08
DX: M23.91 Unspecified internal derangement of right knee (principal); V86.56XA Driver of dirt bike or motor/cross bike injured in nontraffic accident, initial encounter
CPT/HCPCS: 73564; 99283; A9270

== ENCOUNTER 2023-03-22 07:58 | Emergency (ER) | payer MEDICAID ==
[2023-03-22 08:10] VITALS: O2SAT 99
--- NOTE | 2023-03-22 09:01 | ED Physician Documentation ---
PD HPI LOWER EXT INJURY - Stated complaint Stated Complaint: RT KNEE PX - Chief complaint Chief Complaint: Ext Problem - History obtained from History obtained from: Patient - History of Present Illness PD HPI LOW EXT INJURY LOCATION: Right, Knee Type of injury: Other (He had had a twisting injury of the knee a month or 2 ago that had healed reasonably. No new injury in the last day or 2. Onset of pain this morning.). No: Fall, Twist Worsened by: Moving, Palpating Associated symptoms: Swelling. No: Weakness, Numbness, Discolored (He describes his knee as red warm and swollen this morning. Here in the ER there is tenderness without any effusion nor redness. Minimal warmth.) Review of Systems Constitutional: denies: Fever, Chills Nose: denies: Rhinorrhea / runny nose, Congestion Throat: denies: Sore throat, Swollen tonsils Respiratory: denies: Cough Skin: denies: Rash, Lesions PD PAST MEDICAL HISTORY - Past Medical History Cardiovascular: None Respiratory: None, Asthma Neuro: None Endocrine/Autoimmune: None GI: None : None HEENT: None Psych: None Musculoskeletal: None Derm: None - Past Surgical History Past Surgical History: Yes HEENT: Tonsil/Adenoidectomy - Present Medications Home Medications: Ambulatory Orders Medication Instructions Recorded Confirmed Amitriptyline [Elavil] 25 mg PO HS PRN #15 tablet 07/20/21 Fluticasone [Flonase] 2 sprays JEREL DAILY 30 Days #16 gm 07/20/21 HYDROcod/ACETAM 5/325 [Rawlins 5/325] 1 - 2 tab PO Q6H PRN #15 tablet 12/09/22 Ibuprofen [Motrin] 800 mg PO Q8H PRN #20 tablet 12/09/22 HYDROcod/ACETAM 5/325 [Rawlins 5/325] 1 ea PO Q6H PRN #15 tablet 03/22/23 Meloxicam [Mobic] 7.5 mg PO BID 10 Days #20 tablet 03/22/23 - Allergies Allergies/Adverse Reactions: Allergies Allergy/AdvReac Type Severity Reaction Status Date / Time No Known Drug Allergies Allergy Verified 12/09/22 20:11 - Social History Does the pt smoke?: No Smoking Status: Never smoker Does the pt drink ETOH?: No Does the pt have substance abuse?: No - Immunizations Immunizations are current?: Yes Immunizations: TDAP current <10years - POLST Patient has POLST: No POLST Status: Full Code PD ED PE NORMAL - Vitals Vital signs reviewed: Yes - General General: Alert and oriented X 3, No acute distress, Well developed/nourished - Derm Derm: Normal color, Warm and dry - Extremities Extremities: Other (The right knee has some tenderness in the lower medial quadriceps. Patellar tendon is intact. Minimal warmth to palpation. No redness nor effusion. Valgus and varus stress testing without laxity. Some pain on valgus.) - Neuro Neuro: Alert and oriented X 3, No motor deficit, No sensory deficit Results - Vitals Vitals: Vital Signs - 24 hr 03/22/23 03/22/23 08:06 10:10 Temperature 37.2 C Heart Rate 78 60 Respiratory 20 16 Rate Blood Pressure 145/81 H 135/77 H O2 Saturation 99 99 Oxygen O2 Source Room air PD Medical Decision Making - ED course Complexity details: reviewed results (No notable injury nor impact. I did not see value in x-ray at this time. No obvious effusion nor skin lesions. I do not get a sense of a septic joint. He has not had any recent dental, throat, skin sores or infections.), considered differential (Right knee pain in the suprapatellar area with tenderness in the medial muscle. No redness, effusion, ligament instability. Some pain with valgus stress. No skin sores.), d/w patient Departure - Departure Disposition: 01 Home, Self Care Clinical Impression: Acute pain of right knee Condition: Stable Record reviewed to determine appropriate education?: Yes Follow-Up: [facility] [Provider Group] Prescriptions: Meloxicam [Mobic] 7.5 mg PO BID 10 Days #20 tablet HYDROcod/ACETAM 5/325 [Rawlins 5/325] 1 ea PO Q6H PRN #15 tablet PRN Reason: Pain Comments: Unclear the cause of your acute knee pain. Presume some strain or ligaments irritated/strained. Use the knee brace and crutches for discomfort and symptoms (either the straight knee brace you have at home or hinged one given today). Crutches for partial to no weight bearing as needed. Meloxicam anti-inflammatory for pain. Tylenol 650 mg 4 times daily for the next week. Add hydrocodone as needed for worse pain. Folow up with Ortho if not improved over the next days//week. Watch for other symptoms such as fevers, redness, other joints hurting, viral type illness, etc. Recheck if these develop. I sent your scripts to [facility] pharmacy. Forms: PCP List Discharge Date/Time: 03/22/23 10:32
[2023-03-22] MEDS ORDERED: IBUPROFEN 800 MG TABLET PO STA (09:19)
[2023-03-22] MEDS ORDERED: HYDROcod/ACETAM 5/325 MG TABLET PO STA (09:19)
[2023-03-22 10:18] VITALS: BP 135/77
== END 2023-03-22 10:32 | disposition home or self-care (01) ==
LOC: ED 07:58
DX: M25.561 Pain in right knee (principal)
CPT/HCPCS: 99283; A9270